=== PATIENT | female | born 1970 | race Caucasian/White ===

== ENCOUNTER 2024-08-09 17:14 | Emergency (ER) | payer OTHER, SELFPAY ==
[2024-08-09] VITALS (13 sets, daily range): BP systolic 140–150; BP diastolic 85–107; PULSE 70–92; RESP 8–19; TEMP 36.6–36.7; O2SAT 95–100
--- NOTE | 2024-08-09 21:13 | ECG_ITS ---
Test Date: 2024-08-09 22:19:04 Measurements Intervals [place] Rate: 81 P: 151 TX: 168 QRS: 202 QRSD: 99 T: 171 QT: 392 QTc: 456 Interpretive Statements SINUS RHYTHM ARM LEADS REVERSED [INVERTED P AND QRS IN I] LEFTWARD AXIS ABNORMAL ECG No previous ECG available for comparison Electronically Signed On 08-10-2024 07:30:43 CDT by Edin Curiel M.D.
--- NOTE | 2024-08-09 21:58 | ED.RECABL ---
HPI - Recheck/Abnormal Lab/Rx General Chief Complaint: Recheck/Abnormal Lab/Rx Stated Complaint: elevated K+ Time Seen by Provider: 08/09/24 21:14 Source: patient Mode of arrival: ambulatory Limitations: no limitations History of Present Illness HPI narrative: This is a 51-year-old female that presents to the emergency department for abnormal outpatient blood work. Reports she had blood work drawn 4 days ago. The results came in today to have potassium was high, so she was sent to the ER. She does not have any symptoms currently. Related Data Allergies Allergy/AdvReac Type Severity Reaction Status Date / Time codeine Allergy Vomiting Verified 08/09/24 17:46 Penicillins Allergy Rash Verified 08/09/24 17:46 Sulfa (Sulfonamide Allergy Rash Verified 08/09/24 17:46 Antibiotics) Review of Systems Review of Systems: CONSTITUTIONAL: Denies fever GASTROINTESTINAL: Denies abdominal pain, nausea, vomiting NEUROLOGIC: Denies numbness, or weakness. All systems reviewed & are unremarkable except as noted in HPI and below PMFSH Past Medical History Medical History (Updated 08/09/24 @ 23:44 by Aletha Noguera PA-C) History of neuropathy Social History Social History (Updated 08/09/24 @ 21:59 by Aletha Noguera PA-C) Smoking status: Never smoker Exam Narrative: GENERAL: Well-appearing, well-nourished, and in no acute distress. HEAD: Normocephalic, atraumatic. EYES: EOMI. CHEST: Clear to auscultation. No respiratory distress. No wheezes rales or rhonchi HEART: Regular rate and rhythm. No murmur heard. Normal peripheral pulses. EXTREMITIES: Normal range of motion. No edema. SKIN: Warm, dry, no rash. NEURO: No focal deficits. Alert and oriented x3. PSYCH: Normal mood and affect Course Vital Signs Vital signs: Vital Signs Temperature 98 F 08/09/24 17:44 Pulse Rate 92 08/09/24 17:44 Respiratory Rate 18 08/09/24 17:44 Blood Pressure 149/91 H 08/09/24 17:44 Pulse Oximetry 95 08/09/24 17:44 Oxygen Delivery Room Air 08/09/24 17:44 Temperature 98.0 F 08/09/24 21:47 Pulse Rate 82 10/07/24 21:47 Respiratory Rate 16 08/09/24 21:47 Blood Pressure 140/107 H 08/09/24 21:47 Pulse Oximetry 99 08/09/24 21:47 Oxygen Delivery Room Air 08/09/24 21:47 MDM - Recheck/Abnormal Lab/Rx MDM Narrative Medical decision making narrative: Patient presents to the emergency department for abnormal outpatient blood work obtained 4 days ago. Potassium here is normal. She is asymptomatic. Lab Data Attestation: I reviewed the patient's lab results. 08/09/24 22:30 08/09/24 22:30 Labs: Lab Results 08/09/24 08/09/24 Range/Units 22:03 22:30 WBC 5.9 (4.5-10.0) K/mm3 RBC 4.73 (4.2-5.4) M/mm3 Hgb 11.8 L (12.0-15.0) g/dL Hct 39.9 (37.0-47.0) % MCV 84.4 (80-100) fl MCH 24.9 L (26-34) pg MCHC 29.6 L (32-36) g/dl RDW 24.7 H (11.5-14.5) % Plt Count 321 (150-375) k/mm3 MPV 10.4 (7.4-10.4) fl Immature Gran % (Auto) 0.2 (0-0.5) % Neut % (Auto) 51.9 (45.5-73.1) % Lymph % (Auto) 30.7 (18.3-44.2) % [place] % (Auto) 9.1 H (2.6-8.5) % Eos % (Auto) 7.1 H (0-4.4) % Baso % (Auto) 1.0 (0.2-1.2) % Lymph # (Auto) 1.82 (0.9-3.2) K/mm3 [place] # (Auto) 0.5 (0.1-0.6) K/mm3 Eos # (Auto) 0.4 H (0-0.3) K/mm3 Baso # (Auto) 0.1 (0.0-0.1) K/mm3 Abs Immat Gran (auto) 0.01 (0.00-0.031) K/mm3 Absolute Neuts (auto) 3.1 (1.3-6.7) K/mm3 Absolute Nucleated RBC 0.000 (0.0-0.012) K/mm3 Nucleated RBC % 0.0 (0.0-0.2) % Platelet Estimate Adequate (Adequate) Hypochromasia 1+ Anisocytosis 1+ Ovalocytes 1+ Schistocytes None seen Sodium 139 (137-145) mmol/L Potassium 4.0 (3.4-5.0) mmol/L Chloride 101 (98-107) mmol/L Carbon Dioxide 27 (22-30) mmol/L Anion Gap 11 (4-12) mmol/L BUN 16 (7-17) mg/dL Creatinine 0.80 (0.7-1.0) mg/dL Estim Creat Clear
[2024-08-09 22:10] LABS: Add Urine Microscopic? NO; Appearance Urine Clear (Clear); Bilirubin Urine Negative (Negative); Blood Urine Negative (Negative); Color Urine Yellow (Yellow); Glucose Urine UA Negative (Negative); Ketones Urine Negative (Negative); Leukocyte Esterase Ur Negative LEU/UL (Negative); Nitrate Urine Negative (Negative); Protein Urine Negative (Negative); Specific Grav Ur 1.011 (1.001-1.035); Urobilinogen Urine 0.2 mg/dL (<2.0); pH Urine 5.5 (5.0-9.0)
[2024-08-09 22:42] LABS: Basophils Absolute Auto 0.1 K/mm3 (0.0-0.1); Eosinophils Absolute Auto 0.4 K/mm3 (0-0.3); Eosinophils Percent Auto 7.1 % (0-4.4); Hematocrit 39.9 % (37.0-47.0); Hemoglobin 11.8 g/dL (12.0-15.0); Immature Granulocyte Absolute 0.01 K/mm3 (0.00-0.031); Immature Granulocyte Percent A 0.2 % (0-0.5); Lymphocytes Absolute Auto 1.82 K/mm3 (0.9-3.2); Lymphocytes Percent Auto 30.7 % (18.3-44.2); Mean Corpuscular HGB Conc 29.6 g/dl (32-36); Mean Corpuscular Hemoglobin 24.9 pg (26-34); Mean Corpuscular Volume 84.4 fl (80-100); Mean Platelet Volume 10.4 fl (7.4-10.4); Monocytes Absolute Auto 0.5 K/mm3 (0.1-0.6); Monocytes Percent Auto 9.1 % (2.6-8.5); Neutrophils Absolute Auto 3.1 K/mm3 (1.3-6.7); Neutrophils Percent Auto 51.9 % (45.5-73.1); Platelet Count Result 321 k/mm3 (150-375); Red Blood Count 4.73 M/mm3 (4.2-5.4); Red Cell Distribution Width 24.7 % (11.5-14.5); White Blood Count 5.9 K/mm3 (4.5-10.0)
[2024-08-09 23:06] LABS: Alanine Aminotransferase 71 U/L (6-35); Albumin Level 4.9 g/dL (3.5-5.1); Alkaline Phosphatase 75 U/L (38-126); Anion Gap 11 mmol/L (4-12); Aspartate Amino Transferase 61 U/L (14-36); Bilirubin,Total 0.6 mg/dL (0.2-1.3); Blood Urea Nitrogen 16 mg/dL (7-17); Calcium 9.9 mg/dL (8.4-10.2); Carbon Dioxide 27 mmol/L (22-30); Chloride 101 mmol/L (98-107); Estimated CRCL calculation 79 ml/min; Estimated Glomerular Filt Rate > 60; Glucose 98 mg/dL (65-110); Sodium 139 mmol/L (137-145)
[2024-08-09 23:16] LABS: Anisocytosis 1+; Hypochromasia 1+; Ovalocytes 1+; Platelet Estimate Adequate (Adequate); Schistocytes None Seen
[2024-08-09 23:26] LABS: Creatine Kinase 73 U/L (30-135)
[2024-08-10] VITALS: PULSE 77; RESP 19; O2SAT 95
[2024-08-10 00:01] VITALS: BP 138/88; PULSE 73; RESP 13; O2SAT 100
[2024-08-10 00:15] VITALS: PULSE 73; RESP 17
[2024-08-10 00:16] VITALS: BP 139/95; PULSE 78; RESP 15; O2SAT 97
[2024-08-10 00:21] VITALS: BP 139/95; PULSE 77; RESP 15; TEMP 36.6; O2SAT 100
== END 2024-08-10 00:22 | disposition home or self-care (01) ==
PROVIDERS: Emergency Provider Physician Assistant
DX: D64.9 Anemia, unspecified (principal); R74.01 Elevation of levels of liver transaminase levels; G62.9 Polyneuropathy, unspecified; R94.31 Abnormal electrocardiogram [ECG] [EKG]
CPT/HCPCS: 36415; 80053; 81003; 82550; 85025; 93005; 99283

== ENCOUNTER 2024-08-17 17:43 | Emergency (ER) | payer OTHER, SELFPAY ==
--- NOTE | ~2024-08-17 | CT_ITS ---
EXAMINATION: CT abdomen pelvis w con DATE: 08/17/2024 19:56 INDICATION: Upper abdominal pain. Nausea and vomiting. TECHNIQUE: Computed tomography (CT) of the abdomen and pelvis was performed with 100 mL Omnipaque 350 intravenous contrast. Automated exposure control and iterative reconstruction technique were employe d. The dose-length product was 1025.38 mGy-cm. COMPARISON: None. FINDINGS: The visualized portions of lung bases demonstrate mild scarring in paraspinal right lower l obe. There is mild atelectasis bilaterally. No pleural effusion. The heart size is normal. No pericar dial effusion. The liver, gallbladder, spleen, pancreas, adrenal glands, and kidneys are normal. Ther e are no dilated loops of bowel. The appendix is normal. There are no pathologically enlarged lymph n odes. There is no free intraperitoneal fluid. There is thoracolumbar dextroscoliosis and moderate spo ndylosis. IMPRESSION: 1. No etiology for the patient's symptoms. Reviewed, dictated and finalized at location A.
[2024-08-17 18:08] VITALS: BP 117/85; PULSE 87; RESP 18; TEMP 36.2; O2SAT 100
--- NOTE | 2024-08-17 19:06 | ED.NAVMDI ---
HPI - Nausea/Vomiting/Diarrhea General Chief complaint: Nausea/Vomiting/Diarrhea Stated complaint: N/V X3 HOURS. FROM [place] Time Seen by Provider: 08/17/24 18:45 Source: patient Mode of arrival: ambulatory Limitations: no limitations History of Present Illness HPI Narrative: Patient is a 53 y/o female who presents to the ED with c/o N/V. Patient is currently residing at [place] for mental health issues. She states she has been feeling achy and unwell for the last 2 days. She then began having nausea and vomiting about 3 hours ago. Unable to keep down any food or drink. Sent here for further evaluation. Patient reports mild discomfort throughout her upper abdomen. Denies diarrhea. Does note she has had issues with constipation recently, but did have a small bowel movement this morning. Denies known fevers, cough, cold sx's. States a few other girls in the woman's unit at [place] have been sick as well. Related Data Allergies Allergy/AdvReac Type Severity Reaction Status Date / Time codeine Allergy Vomiting Verified 08/17/24 18:48 Penicillins Allergy Rash Verified 08/17/24 18:48 Sulfa (Sulfonamide Allergy Rash Verified 08/17/24 18:48 Antibiotics) Review of Systems Review of Systems: All systems reviewed & are unremarkable except as noted in HPI. All systems reviewed & are unremarkable except as noted in HPI and below PMFSH Past Medical History Medical History History of neuropathy Social History Social History Smoking status: Never smoker Exam Narrative: GENERAL: Well appearing, well-nourished, non-toxic, in no acute distress. HEAD: Normocephalic, atraumatic. RESPIRATORY: Airway patent, respirations nonlabored. Clear to auscultation bilaterally, no rales, rhonchi, wheezing. CARDIOVASCULAR: Regular rate and rhythm without murmurs, rubs, or gallops. ABDOMINAL: Soft, minimal tenderness in epigastric region, nondistended. Normoactive BS. MUSCULOSKELETAL: Moves all extremities. No gross deformities. SKIN: Warm, dry, normal color. NEURO: A&O X3. Speech clear. PSYCHIATRIC: Appropriate mood and affect. Normal interaction. Course Vital Signs Vital signs: Vital Signs Temperature 97.2 F L 08/17/24 18:08 Pulse Rate 87 08/17/24 18:08 Respiratory Rate 18 08/17/24 18:08 Blood Pressure 117/85 08/17/24 18:08 Pulse Oximetry 100 08/17/24 18:08 Temperature 97.2 F L 08/17/24 18:08 Pulse Rate 85 08/17/24 21:32 Respiratory Rate 14 08/17/24 21:32 Blood Pressure 131/90 08/17/24 21:32 Pulse Oximetry 100 08/17/24 21:32 MDM - Nausea/Vomiting/Diarrhea MDM Narrative Medical decision making narrative: Patient presented to ED with several hour onset of nausea, vomiting. Also reporting general malaise, achiness. Vital signs are stable upon arrival. Patient is in no acute distress. Afebrile. Laboratory studies without leukocytosis. Minimal chronic anemia. CMP is unremarkable. Stable electrolytes. Stable kidney function. Urinalysis is clear. Viral swabs were negative. CT scan of abdomen pelvis was obtained and also unremarkable. Patient given fluids, Zofran, Benadryl, Reglan in the ED. She is feeling better with supportive therapy, just reports mild cramping throughout her abdomen still. Will attempt Bentyl. Patient is able to tolerate p.o. intake. She feels comfortable going back to [place]. Discussed likelihood of viral gastroenteritis. Will discharge with prescriptions for Bentyl and Zofran. Given return precautions. She agrees with plan. Discharged in stable condition. Medical Records Attestation: I reviewed the patient's medical records. Lab Data Attestation: I reviewed the patient's lab results. 08/17/24 19:02 08/17/24 19:02 Labs: Lab Results 08/17/24 08/17/24 Range/Units 19:02 19:38 WBC 7.1 (4.
[2024-08-17 19:18] LABS: Basophils Absolute Auto 0.1 K/mm3 (0.0-0.1); Eosinophils Absolute Auto 0.5 K/mm3 (0-0.3); Eosinophils Percent Auto 7.6 % (0-4.4); Hematocrit 37.8 % (37.0-47.0); Hemoglobin 11.1 g/dL (12.0-15.0); Immature Granulocyte Absolute 0.01 K/mm3 (0.00-0.031); Immature Granulocyte Percent A 0.1 % (0-0.5); Lymphocytes Absolute Auto 2.06 K/mm3 (0.9-3.2); Lymphocytes Percent Auto 29.1 % (18.3-44.2); Mean Corpuscular HGB Conc 29.4 g/dl (32-36); Mean Corpuscular Hemoglobin 25.5 pg (26-34); Mean Corpuscular Volume 86.9 fl (80-100); Mean Platelet Volume 10.6 fl (7.4-10.4); Monocytes Absolute Auto 0.8 K/mm3 (0.1-0.6); Monocytes Percent Auto 10.7 % (2.6-8.5); Neutrophils Absolute Auto 3.6 K/mm3 (1.3-6.7); Neutrophils Percent Auto 51.5 % (45.5-73.1); Platelet Count Result 303 k/mm3 (150-375); Red Blood Count 4.35 M/mm3 (4.2-5.4); Red Cell Distribution Width 23.9 % (11.5-14.5); White Blood Count 7.1 K/mm3 (4.5-10.0)
[2024-08-17] MEDS: SODIUM CHLORIDE 0.9% IV 1,000 ML 999 ML IV CONT (19:19)
[2024-08-17] MEDS: ONDANSETRON INJ 4 MG/2 ML VIAL IV PUSH (19:19)
[2024-08-17 19:21] LABS: Add Urine Microscopic? NO; Appearance Urine Clear (Clear); Bilirubin Urine Negative (Negative); Blood Urine Negative (Negative); Color Urine Yellow (Yellow); Glucose Urine UA Negative (Negative); Ketones Urine Negative (Negative); Leukocyte Esterase Ur Negative LEU/UL (Negative); Nitrate Urine Negative (Negative); Protein Urine Negative (Negative); Specific Grav Ur 1.013 (1.001-1.035); Urobilinogen Urine 0.2 mg/dL (<2.0)
[2024-08-17 19:28] LABS: Alanine Aminotransferase 35 U/L (6-35); Albumin Level 4.4 g/dL (3.5-5.1); Alkaline Phosphatase 71 U/L (38-126); Anion Gap 9 mmol/L (4-12); Aspartate Amino Transferase 37 U/L (14-36); Bilirubin,Total 0.4 mg/dL (0.2-1.3); Blood Urea Nitrogen 16 mg/dL (7-17); Calcium 9.5 mg/dL (8.4-10.2); Carbon Dioxide 31 mmol/L (22-30); Chloride 99 mmol/L (98-107); Estimated CRCL calculation 80 ml/min; Estimated Glomerular Filt Rate > 60; Glucose 93 mg/dL (65-110); Lipase 78 U/L (23-300); Potassium 4.6 mmol/L (3.4-5.0); Sodium 139 mmol/L (137-145)
[2024-08-17 19:44] LABS: Magnesium 1.9 mg/dL (1.6-2.3)
[2024-08-17 19:50] LABS: Platelet Estimate Adequate (Adequate); Schistocytes None Seen
[2024-08-17 19:51] LABS: Anisocytosis 3+; Hypochromasia 1+
[2024-08-17 20:19] LABS: Influenza A QL RT-PCR Negative (Negative); Influenza B QL RT-PCR Negative (Negative); RSV RNA, RT-PCR Negative (Negative); SARS-CoV-2 RNA PCR Negative (Negative)
[2024-08-17 21:32] VITALS: BP 131/90; PULSE 85; RESP 14; O2SAT 100
[2024-08-17] MEDS: METOCLOPRAMIDE HCL INJ 10 MG/2 ML VIAL IV PUSH (21:32)
[2024-08-17] MEDS: diphenhydrAMINE HCl INJ 50 MG/ML VIAL 25 MG IV PUSH (21:32)
[2024-08-17] MEDS: DICYCLOMINE HCL 10 MG CAPSULE 20 MG PO (22:32)
== END 2024-08-17 22:39 | disposition home or self-care (01) ==
PROVIDERS: Emergency Provider Physician Assistant; PCP Nurse Practitioner Family
DX: R11.2 Nausea with vomiting, unspecified (principal); R10.9 Unspecified abdominal pain; Z20.822 Contact with and (suspected) exposure to COVID-19
CPT/HCPCS: 36415; 74177; 80053; 81003; 83690; 83735; 85025; 87637; 96361; 96374; 96375; 99284; A9270; J1200; J2405; J2765; J7030; Q9967